=== PATIENT | male | born 1990 | race Two or more races ===

== ENCOUNTER 2017-01-24 00:03 | Emergency (ER) | payer SELFPAY ==
[~2017-01-24] VITALS: Ht 177.8 cm; Wt 106.6 kg
[2017-01-24] MEDS: HYDROCODONE/APAP 10-325 MG TABLET PO ONE (00:34)
[2017-01-24] MEDS: SULFAMETH/TRIMETH 800/160 MG TABLET PO ONE (00:34)
--- NOTE | 2017-01-24 00:35 | NUR ---
Patient discharged to home in stable conditon. Written and verbal after care instructions given. Patient verbalizes understanding of instructions.
[2017-01-24] MEDS ORDERED: HYDROCODONE/APAP 10-325 MG TABLET ONE (00:42)
[2017-01-24] MEDS ORDERED: SULFAMETH/TRIMETH 800/160 MG TABLET ONE (00:42)
== END 2017-01-24 00:36 | disposition home or self-care (01) ==
LOC: ER 00:10
DX: L03.012 Cellulitis of left finger (principal); F17.200 Nicotine dependence, unspecified, uncomplicated; F10.10 Alcohol abuse, uncomplicated
CPT/HCPCS: A4663